=== PATIENT | male | born 1985 | race Caucasian/White ===

== ENCOUNTER 2024-03-01 14:47 | Emergency (ER) | payer BC, SELFPAY ==
--- NOTE | 2024-03-01 14:49 | ECG_ITS ---
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 Measurements Intervals [place] Rate: 75 P: 66 [place]: 143 QRS: 64 QRSD: 81 T: 68 QT: 358 QTc: 400 Interpretive Statements SINUS RHYTHM WITH SINUS ARRHYTHMIA MINIMAL ST DEPRESSION [0.025+ mV ST DEPRESSION] No previous ECG available for comparison Electronically Signed On 03-02-2024 13:44:08 CDT by Tamia Neumann M.D. [id number]
[2024-03-01 14:51] VITALS: BP 146/96; PULSE 97; RESP 20; TEMP 36.8; O2SAT 99
--- NOTE | 2024-03-01 15:11 | W.ED.CHESTPA ---
HPI - Chest Pain General: Chief Complaint: Chest Pain Stated Complaint: CP Time Seen by Provider: 03/01/24 14:58 History of Present Illness: 38-year-old male patient reports waking up at 4 a.m. with chest pain located about two inches above the left nipple. The pain is described as a strong pinch occurring every 20 heartbeats, with a pulsing sensation that goes away. The patient notes that the pain is slightly sore to touch but not exacerbated by deep breathing. Position changes, such as lying down, worsen the pain, while standing upright seems to alleviate it. The patient denies any recent illness, cough, or cold. There is no history of heart problems or arrhythmias, although the patient has experienced more severe chest pains in the past, which were evaluated with EKGs that appeared normal. The patient also reports anxiety and difficulty distinguishing between anxiety-related symptoms and other causes. The patient denies smoking, drinking, and reports caffeine use. The patient experiences reflux but states this pain feels different. There is no fever, cough, or gastrointestinal bleeding. The patient lives alone and expresses concern about the chest pain due to this fact. Associated symptoms: Reports abdominal pain; Deny dyspnea or fever(s) Related Data Home Medications Medication Instructions Recorded Confirmed acetaminophen 325 mg capsule 325 mg PO QID 03/01/24 03/01/24 bismuth subsalicylate 262 mg 524 mg PO Q1H PRN indegestion 03/01/24 03/01/24 tablet (Pepto-Bismol) diphenhydramine HCl 25 mg tablet 25 mg PO TID PRN Runny Nose 03/01/24 03/01/24 (Benadryl Allergy) propranolol 10 mg tablet 10 mg PO BID 03/01/24 03/01/24 simethicone 125 mg tablet 125 mg PO DAILY 03/01/24 03/01/24 venlafaxine 37.5 mg 37.5 mg PO DAILY 03/01/24 03/01/24 capsule,extended release 24 hr Allergies Allergy/AdvReac Type Severity Reaction Status Date / Time Pertussis Vaccines Allergy Unknown Verified 03/01/24 14:54 Review of Systems Const: Denies: fever(s) or chills Card: Reports: chest pain Resp: Denies: dyspnea GI: Reports: abdominal pain : Denies: dysuria, urinary frequency or urinary urgency Musc: Denies: neck pain or back pain Skin/Breast: Denies: rash Physical Exam Const: GENERAL APPEARANCE: cooperative ORIENTATION/CONSCIOUSNESS: Yes awake, Yes oriented to person, Yes oriented to place and Yes oriented to time HENMT: COMMON NORMALS: normocephalic, atraumatic and hearing grossly normal bilaterally HEAD & SCALP: normocephalic and atraumatic Lymph: OTHER: Chest pain not reproducible with palpation Resp: COMMON NORMALS: normal respiratory effort, No retractions, No use of accessory muscles and clear to auscultation bilaterally AUSCULTATION: clear to auscultation bilaterally Cardio: COMMON NORMALS: regular rate, regular rhythm and No murmurs present (Cardio) RATE: regular rate RHYTHM: regular rhythm GI: COMMON NORMALS: Soft to palpation and No hepatosplenomegaly present AUSCULTATION: Yes normoactive bowel sounds PALPATION: Yes Soft to palpation, No Tenderness to palpation present (GI), No Guarding due to palpation present (GI) and Yes No hepatosplenomegaly present Extremity: COMMON NORMALS: normal to inspection, capillary refill normal, no clubbing, cyanosis or edema, no calf tenderness and no pedal edema Neuro: SENSORIUM/ORIENTATION: Yes oriented to person, Yes oriented to place and Yes oriented to time Skin: COMMON NORMALS: no rashes or lesions noted GENERAL SKIN EXAM: no rashes or lesions noted Course Vital Signs: Vital signs: Vital Signs Temperature 98.3 F 03/01/24 14:51 Pulse Rate 79 03/01/24 16:38 Respiratory Rate 16 03/01/24 16:38 Blood Pressure 147/96 03/01/24 16:38 Pulse Oximetry 97 03/01/24 16:38 Oxygen Delivery Me thod Room Air 03/01/24 16:38 MDM - Chest Pain Medical Decision Making Cardiac enzymes and EKG are unremarkable. No acute changes. Did have some early repolarization changes. He is not having any chest discomfort at this time. Will discharge the patient home. I suspect this is more atypical chest pain start him on Prilosec 20 mg twice a day for 10 days then once daily. Will have him follow-up with his primary care doctor. I did ask him take a baby aspirin daily until he follows his primary care doctor for his any worsening or change symptoms return Medical Records I reviewed the patient's medical records. Lab Data I reviewed the patient's lab results. 03/01/24 15:20 03/01/24 15:20 Laboratory Results WBC 4.70 10^3/uL (3.29-11.43) 03/01/24 15:20 RBC 4.87 10^6/uL (3.85-5.65) 03/01/24 15:20 Hgb 14.60 g/dL (11.27-16.99) 03/01/24 15:20 Hct 41.7 % (37-53) 03/01/24 15:20 MCV 85.6 fl (82-101) 03/01/24 15:20 MCH 30.0 pg (27-33) 03/01/24 15:20 MCHC 35.0 g/dL (30-55) 03/01/24 15:20 RDW 12.3 % (12.1-15.1) 03/01/24 15:20 Plt Count 241 10^3/cmm (157-399) 03/01/24 15:20 MPV 11.0 fL (7.4-10.4) H 03/01/24 15:20 Neut % (Auto) 60.4 % 03/01/24 15:20 Lymph % (Auto) 27.7 % 03/01/24 15:20 [place] % (Auto) 8.3 % 03/01/24 15:20 Eos % (Auto) 2.1 % 03/01/24 15:20 Baso % (Auto) 1.3 % 03/01/24 15:20 Neut # (Auto) 2.84 10^3/uL (1.8-7.7) 03/01/24 15:20 Lymph # (Auto) 1.3 10^3/uL (0.8-4.8) 03/01/24 15:20 [place] # (Auto) 0.4 10^3/uL (0.2-0.9) 03/01/24 15:20 Eos # (Auto) 0.1 10^3/uL (0.0-0.8) 03/01/24 15:20 Baso # (Auto) 0.1 10^3/uL (0.0-0.1) 03/01/24 15:20 Nucleated RBC % (auto) 0 % 03/01/24 15:20 Nucleated RBCs # 0.0 /100WBC 03/01/24 15:20 Sodium 140 mmol/L (136-145) 03/01/24 15:20 Potassium 4.2 mmol/L (3.5-5.1) 03/01/24 15:20 Chloride 104 mmol/L (98-107) 03/01/24 15:20 Carbon Dioxide 26 mmol/L (22-29) 03/01/24 15:20 Anion Gap 14.2 (5-19) 03/01/24 15:20 BUN 6 mg/dL (6-20) 03/01/24 15:20 Creatinine 0.7 mg/dL (0.7-1.2) 03/01/24 15:20 GFR Calculation 126.9 mL/min (90-130) 03/01/24 15:20 Glucose 110 mg/dL (65-115) 03/01/24 15:20 Calculated Osmolality 288 mOsm/kg (285-295) 03/01/24 15:20 Calcium 9.2 mg/dL (8.5-10.5) 03/01/24 15:20 Total Bilirubin 0.8 mg/dL (0.15-1.2) 03/01/24 15:20 AST 18 U/L (0-40) 03/01/24 15:20 ALT 18 U/L (0-41) 03/01/24 15:20 Alkaline Phosphatase 85 U/L (40-130) 03/01/24 15:20 Troponin T Baseline < 6 ng/L (0-15) 03/01/24 15:20 Troponin T 120 Minute 6.00 ng/L (0-15) 03/01/24 17:39 Delta Troponin T 0.87361 ABS# (0-10) 03/01/24 17:39 Total Protein 6.3 g/dL (6.6-8.7) L 03/01/24 15:20 Albumin 4.5 g/dL (3.5-5.2) 03/01/24 15:20 Globulin 1.8 g/dL (1.3-4.6) 03/01/24 15:20 All radiology interpretation(s) finalized by discharge ED provider radiology interpretation(s): EKG shows normal cardiac silhouette and mediastinum normal lung [place]. No osseous abnormalities lung [place] clear without signs of effusion infiltrate or pulmonary edema Discharge Plan Discharge Patient Disposition: Home Clinical Impression: Atypical chest pain Condition: Stable Prescriptions: No Action venlafaxine 37.5 mg Capsule,Extended Release 24hr 37.5 mg PO DAILY propranolol 10 mg Tablet 10 mg PO BID diphenhydramine HCl [Benadryl Allergy] 25 mg Tablet 25 mg PO TID PRN (Reason: Runny Nose) Pepto-Bismol 262 mg Tablet 524 mg PO Q1H PRN (Reason: indegestion) Rx Instructions: do not exceed 8 doses in a 24 hour period simethicone 125 mg Tablet 125 mg PO DAILY acetaminophen 325 mg Capsule 325 mg PO QID Discharge Orders: Discharge ED (Routine); Ordered 03/01/24 Ordered By: Melvin Padilla Discharge Diet: Usual diet Discharge Activity: Resume usual activity Patient Instructions: Opioid Safety, Pain Management Activity Restrictions/Additional Instructions: Thank you for choosing [facility] for your healthcare needs today. It is very important that you follow up as instructed or that you return to the Emergency Department should you have concerns or if your condition changes or worsens in any way. You are seen in the emergency room with complaints of chest discomfort. Your EKG and cardiac enzymes were normal there is no evidence of acute coronary syndrome. Recommend you follow-up with your primary care doctor. Also recommend you start aspirin daily and [id number] omeprazole 20 mg 1 pill twice a day for 10 days then once a day Coding Level of Care Code ED Furnace [employer] for Natanael Gar
[2024-03-01 15:30] VITALS: PULSE 72; RESP 18; O2SAT 99
[2024-03-01 16:38] VITALS: BP 147/96; PULSE 79; RESP 16; O2SAT 97
--- NOTE | 2024-03-01 17:31 | XRR_ITS ---
PROCEDURE INFORMATION: Exam: XR Chest Exam date and time: 03/01/2024 5:48 PM Age: 38 years old Clinical indication: Chest pressure; Patient HX: Lt chest pain; Anxiety; Hyperventilation; HX asthma TECHNIQUE: Imaging protocol: Radiologic exam of the chest. Views: 1 view. COMPARISON: No relevant prior studies available. FINDINGS: Lungs: Unremarkable. No consolidation. Pleural spaces: Unremarkable. No pleural effusion. No pneumothorax. Heart/Mediastinum: Unremarkable. No cardiomegaly. Bones/joints: Unremarkable. XR/XR chest 1V portable [id number] IMPRESSION: No acute plain radiographic cardiopulmonary or osseous abnormality.
[2024-03-01 17:40] LABS: Basophils # 0.1 10^3/uL (0.0-0.1); Basophils % 1.3 %; Eosinophils # 0.1 10^3/uL (0.0-0.8); Eosinophils % 2.1 %; Hematocrit 41.7 % (37-53); Lymphocytes # 1.3 10^3/uL (0.8-4.8); Lymphocytes % 27.7 %; Mean Corpuscular Volume 85.6 fl (82-101); Monocytes # 0.4 10^3/uL (0.2-0.9); Monocytes % 8.3 %; Neutrophils # 2.84 10^3/uL (1.8-7.7); Neutrophils % 60.4 %; Nucleated Red Blood Cells % 0 %; Platelet Count 241 10^3/cmm (157-399); Red Blood Count 4.87 10^6/uL (3.85-5.65); Red Cell Distribution Width 12.3 % (12.1-15.1)
[2024-03-01 17:51] LABS: Troponin(5th) Baseline < 6 ng/L (0-15)
[2024-03-01 17:58] LABS: Alanine Aminotransferase 18 U/L (0-41); Albumin Level 4.5 g/dL (3.5-5.2); Alkaline Phosphatase 85 U/L (40-130); Anion Gap 14.2 (5-19); Aspartate Amino Transferase 18 U/L (0-40); Blood Urea Nitrogen 6 mg/dL (6-20); Calcium 9.2 mg/dL (8.5-10.5); Carbon Dioxide 26 mmol/L (22-29); Chloride 104 mmol/L (98-107); Globulin 1.8 g/dL (1.3-4.6); Glomerular Filtration Rate 126.9 mL/min (90-130); Glucose 110 mg/dL (65-115); Osmolality Calculated 288 mOsm/kg (285-295); Potassium 4.2 mmol/L (3.5-5.1); Sodium 140 mmol/L (136-145); Total Bilirubin 0.8 mg/dL (0.15-1.2); Total Protein 6.3 g/dL (6.6-8.7)
[2024-03-01 18:04] LABS: Troponin 5 2HR Delta 0.00001 ABS# (0-10)
--- NOTE | 2024-03-01 18:27 | ECG_ITS ---
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 Measurements Intervals [place] Rate: 63 P: 73 [place]: 147 QRS: 64 QRSD: 81 T: 73 QT: 385 QTc: 395 Interpretive Statements SINUS RHYTHM ST ELEVATION, PROBABLY EARLY REPOLARIZATION Compared to ECG 03/01/2024 14:52:20 Early repolarization now present Sinus arrhythmia no longer present Electronically Signed On 03-02-2024 13:41:58 CDT by Tamia Neumann M.D. [id number]
[2024-03-01 18:39] VITALS: BP 133/86; PULSE 78; RESP 18; O2SAT 98
== END 2024-03-01 18:40 | disposition home or self-care (01) ==
PROVIDERS: Emergency Provider Family Medicine; PCP Family Medicine
DX: R07.89 Other chest pain (principal)
CPT/HCPCS: 36415; 71045; 80053; 84484; 85025; 93005; 99285